=== PATIENT | male | born 1980 | race African-American/Black ===

== ENCOUNTER 2016-06-28 23:11 | Inpatient (IN) ==
[~2016-06-28 23:11] MED LIST: NARCAN ONE
[2016-06-28] MEDS: DIPRIVAN 1% 1,000 MG/100 ML BOTTLE IV SCH (23:21)
[2016-06-28] MEDS ORDERED: VERSED IV ONE (23:24)
[2016-06-28] MEDS ORDERED: NORCURON IV ONE (23:25)
[2016-06-28] MEDS ORDERED: DIPRIVAN 1% IV ONE (23:27)
[2016-06-28] MEDS ORDERED: NARCAN IV ONE ×2 (23:37→23:38)
[2016-06-28 23:38] LABS: MANUAL DIFF NEEDED? NO
[2016-06-28 23:43] LABS: BASO% 0.4 % (0.0-0.8); EOS% 2.1 % (0.0-10.0); HEMATOCRIT 36.3 % (42.0-52.0); HEMOGLOBIN 12.6 g/dL (14.0-18.0); LYMPH# 2.04 X1000 (1.2-3.4); MCH 29.6 PG (27-31); MCHC 34.7 g/dL (33-37); MCV 85.2 FL (81-99); MONO# 0.24 X1000 (0.11-0.59); MONO% 4.9 % (1.7-9.3); MPV 10.4 FL (7.4-10.4); NEUT% 50.6 % (42.2-75.2); PLT 203 X1000 (130-400); RBC 4.26 XMIL (4.7-6.1)
[2016-06-29] LABS: ACETAMINOPHEN < 1.2 ug/mL (10-30); AGAP 14; ALBUMIN 4.1 g/dL (3.5-5.0); ALKALINE PHOSPHATASE 78 U/L (32-122); BUN 5 mg/dL (8-22); CALCIUM 7.9 mg/dL (8.8-10.2); CHLORIDE 110 mmol/L (98-107); COSMO 292; GOT 20 U/L (10-34); GPT 18 U/L (10-44); POTASSIUM 3.3 mmol/L (3.5-5.1); SODIUM 148 mmol/L (136-145); TCO2 24 mmol/L (25-35); TOTAL BILIRUBIN 0.27 mg/dL (0.20-1.00); TOTAL PROTEIN 7.1 g/dL (6.3-8.3)
[2016-06-29 00:22] LABS: ALLEN TEST YES; BE 2.9 mmoll (-3.0-3.0); BLOOD TYPE ARTERIAL; DRAW SITE R RADIAL; METHB 1.6 % (0.0-1.5); O2(CT) 19.3 mL/dL (15.0-23.0); PCO2(98.6) 34 mmHg (35-45); PO2(98.6) 393 mmHg (60-100); SAMPLE BLOOD; SAO2 100.1 % (95.0-100.0); SRATE 12 BPM; THB 13.4 g/dL (11.5-17.4); TVOL 600 mL; pH(98.6) 7.49 (7.35-7.45)
[2016-06-29 00:23] LABS: MODALITY VENTILATOR
[2016-06-29 00:23] LABS: UR AMPHETAMINES QUAL NONE DETECTED (NONE DETECT); UR BARBITUATES QUAL NONE DETECTED (NONE DETECT); UR BENZODIAZEPIN QUAL NONE DETECTED (NONE DETECT); UR CANNABINOIDS QUAL NONE DETECTED (NONE DETECT); UR COCAINE QUAL NONE DETECTED (NONE DETECT); UR METHADONE QUAL NONE DETECTED (NONE DETECT); UR OPIATES QUAL NONE DETECTED (NONE DETECT); UR OXYCODONE QUAL NONE DETECTED (NONE DETECT); UR PCP QUAL NONE DETECTED (NONE DETECT)
[2016-06-29] MEDS: DIPRIVAN 1% 1,000 MG/100 ML BOTTLE IV SCH ×10 (01:50→23:33)
[2016-06-29] MEDS ORDERED: ZOFRAN IV PRN (02:18)
[2016-06-29] MEDS ORDERED: SODIUM CHLORIDE 0.9% INJ SCH (02:18)
[2016-06-29] MEDS ORDERED: D5 1/2 NS 1,000 ML IV ONE (02:18)
[2016-06-29 02:33] LABS: URINE CULTURE NEEDED? NO; URINE MICRO REVIEW NEEDED? NO; URINE SOURCE CATH
[2016-06-29 02:53] LABS: BILIRUBIN URINE NEGATIVE (NEGATIVE); BLOOD URINE NEGATIVE (NEGATIVE); COLOR STRAW; GLUCOSE URINE NEGATIVE (NEGATIVE); LEUKOCYTES URINE NEGATIVE (NEGATIVE); NITRITE URINE NEGATIVE (NEGATIVE); PH URINE 6.5; PROTEIN URINE NEGATIVE (NEGATIVE); SP GRAVITY URINE 1.002; TURBIDITY URINE CLEAR (CLEAR); UR EPITHELIAL CELLS <10 /HPF (<10); URINE BACTERIA NEGATIVE /HPF; URINE RBC <10 /HPF (<10); URINE WBC <10 /HPF (<10); UROBILINOGEN URINE NORMAL (NORMAL)
[2016-06-29] MEDS: PROTONIX IV SCH (02:54)
[2016-06-29] MEDS: POTASSIUM CHLORIDE 20 MEQ/SWI 20 MEQ/100 ML IVPB IV SCH ×2 (02:54→05:43)
[2016-06-29] MEDS: LOVENOX SUBQ SCH (02:54)
[2016-06-29] MEDS: POTASSIUM CHLORIDE 20 MEQ, MAGNESIUM SULFATE 2 GM, THIAMINE 100 MG, FOLIC ACID 1 MG, M.... IV SCH ×6 (03:18)
[2016-06-29 04:26] LABS: ALLEN TEST YES; BE -1.3 mmoll (-3.0-3.0); BLOOD TYPE ARTERIAL; DRAW SITE R RADIAL; METHB 1.2 % (0.0-1.5); O2(CT) 18.9 mL/dL (15.0-23.0); PCO2(98.6) 40 mmHg (35-45); PO2(98.6) 200 mmHg (60-100); SAMPLE BLOOD; SAO2 99.8 % (95.0-100.0); SRATE 12 BPM; THB 13.5 g/dL (11.5-17.4); TVOL 500 mL; pH(98.6) 7.38 (7.35-7.45)
[2016-06-29 04:33] LABS: MODALITY VENTILATOR
--- NOTE | 2016-06-29 05:06 | HISTORY AND PHYSICAL ---
CHIEF COMPLAINT: Unresponsiveness. HISTORY OF PRESENT ILLNESS: Briefly, this is a 36-year-old male. Patient was unresponsive. He was found out in the field, I think, with his lower end exposed. I think his pants were down, passed out. His GCS was below 6. So, he was intubated for airway protection in the ER. Workup in the ER was really unremarkable except for some respiratory alkalosis, interestingly enough. He was not particularly hypoxic but his alcohol level was over 300. The rest of his electrolytes were pretty unremarkable. He has had intoxication issues before at this hospital. He was here in 2015 for intoxication episode at that time. The is patient admitted for respiratory failure, drug intoxication presumably again, or just pure alcohol intoxication. The patient is not appropriate, although he underwent rapid sequence intubation including paralytic and he is on propofol now, but he does attempt to move and get up and around. PAST MEDICAL HISTORY: Per the chart, really nothing contributory except for alcohol abuse. He has never been admitted. PAST SURGERIES: Unknown. FAMILY HISTORY: Unobtainable. SOCIAL HISTORY: Really unremarkable except it does look like he has daily or regular alcohol use. ALLERGIES: No known drug allergies. MEDICATIONS: None listed. REVIEW OF SYSTEMS: Essentially unobtainable. PHYSICAL EXAMINATION: VITAL SIGNS: Blood pressure 124/84, heart rate of 88, respiratory of 12, 97.8 temp, 100%, I think he may be on 60% now. GENERAL: A well-developed male, in no acute distress. HEAD: Normocephalic, atraumatic. Eye exam: Pinpoint pupils, minimally reactive. ENT: He was intubated. NECK: Supple. CARDIOVASCULAR: Exam was soft S1-S2. PULMONARY: Clear to auscultation anteriorly. No rales. No rhonchi. No wheezes. GI: Soft, nontender, nondistended. Bowel sounds are positive. EXTREMITIES: No clubbing or cyanosis. LYMPHATICS: No peripheral edema. NEUROLOGICAL: He moves all extremities spontaneously but he is not responsive to questions or anything appropriate but he is sedated on propofol. LABORATORY DATA: He has no white count. Hemoglobin 12 and hematocrit 36. His chemistries are unremarkable except for sodium up a little bit at 148, potassium 3.3. UDS was negative, although we did not get a urinalysis here. ASSESSMENT: A 36-year-old male presenting with an acute encephalopathy, presumably toxic from drugs or alcohol or a mixture of both, now with respiratory failure, insufficiency due to essentially obtundation. 1. Encephalopathy. We will continue hydration. I am going to give him fluids and a banana bag, and we will monitor closely. He does have some mild hypokalemia. A head CT was unremarkable and he is starting to come around. 2. Acute respiratory failure. We will continue to manage on the ventilator. Obviously oxygenation is not an issue. 3. Hypokalemia. We will supplement and follow. 4. Alcohol abuse, polysubstance abuse. We will continue to monitor very closely, especially for withdrawal issues, although this could have been a binge episode. DISPOSITION: Pending his clinical course. cc: Teddy Cheung MD
[2016-06-29 05:54] LABS: HEMOGLOBIN 13.7 g/dL (14.0-18.0); MCH 29.3 PG (27-31); MCHC 34.3 g/dL (33-37); MCV 85.7 FL (81-99); MPV 10.5 FL (7.4-10.4); RBC 4.67 XMIL (4.7-6.1)
[2016-06-29 06:24] LABS: AGAP 12; BUN 4 mg/dL (8-22); CALCIUM 8.1 mg/dL (8.8-10.2); CHLORIDE 113 mmol/L (98-107); COSMO 296; MAGNESIUM 2.5 mg/dL (1.5-2.7); POTASSIUM 3.9 mmol/L (3.5-5.1); SODIUM 150 mmol/L (136-145); TCO2 25 mmol/L (25-35)
[2016-06-29 06:44] LABS: CK INDEX 0.6 (0.0-2.5); CK-MB 2.61 ng/mL (0.0-5.0)
--- NOTE | 2016-06-29 07:10 | Diag Imaging Result Doc PS360 ---
EXAM: CHEST-PORTABLE HISTORY: dyspnea TECHNIQUE: AP portable at 0500 COMMENT: There is an endotracheal tube with its tip just above the kae. This has been withdrawn a centimeter or two since the previous study of 06/28/2016. There is improvement in the ill-defined opacity which was previously obscuring the left hemidiaphragm. Otherwise the appearance of the chest has not changed significantly. IMPRESSION: Improved left lower lobe atelectasis. Electronically signed by Richard Ku 06/29/2016 7:07 AM
--- NOTE | 2016-06-29 08:08 | Diag Imaging Result Doc PS360 ---
EXAM: CHEST/ABD TUBE PLACEMENT HISTORY: tube placement TECHNIQUE: AP portable at 2330 COMMENT: The endotracheal tube tip is in the orifice of the right mainstem bronchus. There is ill-defined opacity in the left base which was not present on 05/22/2014. The heart size and pulmonary vascularity are within normal limits. IMPRESSION: Endotracheal tube tip is just within the right mainstem bronchus. Left lower lobe atelectasis versus pneumonia. Electronically signed by Richard Ku 06/29/2016 8:06 AM
--- NOTE | 2016-06-29 08:13 | Diag Imaging Result Doc PS360 ---
EXAM: HEAD W/O CONTRAST HISTORY: altered mentation TECHNIQUE: CT of the head without contrast with a dose reduction (clarity.) COMMENT: There are calcifications in the globus pallidus bilaterally. There is no evidence of mass effect bleed or abnormal extra-axial fluid collection. Compared to 05/22/2014 there has been no significant change in the appearance of the brain. There is some mucosal thickening and there is mucus retention cyst formation in the maxillary sinuses particularly on the right. No air-fluid levels are present in the visualized paranasal sinuses. The calvarium is intact. IMPRESSION: Chronic sinusitis. No evidence of acute intracranial disease. Electronically signed by Richard Ku 06/29/2016 8:11 AM
[2016-06-29] MEDS: D5W 1,000 ML IV SCH ×2 (08:34→18:22)
[2016-06-29 09:54] LABS: CK INDEX 0.6 (0.0-2.5); CK-MB 2.58 ng/mL (0.0-5.0)
[2016-06-29 14:53] LABS: CK INDEX 0.5 (0.0-2.5); CK-MB 2.88 ng/mL (0.0-5.0)
[2016-06-29] MEDS: ATIVAN IV PRN (20:08)
[2016-06-29] MEDS ORDERED: MORPHINE IV ONE (21:35)
[2016-06-30] MEDS: DIPRIVAN 1% 1,000 MG/100 ML BOTTLE IV SCH ×4 (01:32→07:57)
[2016-06-30] MEDS: PHENOBARBITAL IV ONE ×2 (02:14→02:33)
[2016-06-30] MEDS: POTASSIUM CHLORIDE 20 MEQ, MAGNESIUM SULFATE 2 GM, THIAMINE 100 MG, FOLIC ACID 1 MG, M.... IV SCH ×6 (02:14)
[2016-06-30] MEDS: LOVENOX SUBQ SCH (02:14)
[2016-06-30] MEDS: ATIVAN IV PRN ×2 (02:21→07:21)
[2016-06-30] MEDS: PROTONIX IV SCH (02:32)
[2016-06-30 04:39] LABS: ALLEN TEST YES; BLOOD TYPE ARTERIAL; DRAW SITE R RADIAL; METHB 1.6 % (0.0-1.5); O2(CT) 17.7 mL/dL (15.0-23.0); PCO2(98.6) 40 mmHg (35-45); PO2(98.6) 124 mmHg (60-100); SAMPLE BLOOD; SAO2 99.7 % (95.0-100.0); SRATE 12 BPM; THB 12.9 g/dL (11.5-17.4); TVOL 500 mL; pH(98.6) 7.43 (7.35-7.45)
[2016-06-30 04:40] LABS: MODALITY VENTILATOR
[2016-06-30 05:22] LABS: MANUAL DIFF NEEDED? NO
[2016-06-30 05:31] LABS: BASO% 0.1 % (0.0-0.8); EOS# 0.14 X1000 (0.0-0.7); EOS% 1.6 % (0.0-10.0); HEMATOCRIT 38.7 % (42.0-52.0); HEMOGLOBIN 13.2 g/dL (14.0-18.0); LYMPH% 17.6 % (20.5-51.1); MCH 29.6 PG (27-31); MCHC 34.1 g/dL (33-37); MCV 86.8 FL (81-99); MONO# 0.81 X1000 (0.11-0.59); MONO% 9.5 % (1.7-9.3); NEUT% 71.2 % (42.2-75.2); PLT 178 X1000 (130-400); RBC 4.46 XMIL (4.7-6.1)
[2016-06-30] MEDS: D5W 1,000 ML IV SCH (05:56)
[2016-06-30 06:05] LABS: AGAP 13; BUN 4 mg/dL (8-22); CALCIUM 8.3 mg/dL (8.8-10.2); CHLORIDE 107 mmol/L (98-107); COSMO 282; POTASSIUM 3.6 mmol/L (3.5-5.1); SODIUM 143 mmol/L (136-145); TCO2 23 mmol/L (25-35)
--- NOTE | 2016-06-30 07:36 | Diag Imaging Result Doc PS360 ---
EXAM: CHEST-PORTABLE HISTORY: dyspnea TECHNIQUE: AP portable 0500 COMMENT: The endotracheal tube tip is just above the kae. The lungs are clear and the heart and primary vascularity are within normal limits. IMPRESSION: No acute disease. Electronically signed by Richard Ku 06/30/2016 7:34 AM
[2016-06-30] MEDS ORDERED: HALDOL IV PRN (09:01)
[2016-06-30] MEDS ORDERED: ZOSYN 3.375 GM/NS 3.375 GM/50 ML IVPB IV SCH (09:30)
[2016-06-30 10:06] LABS: ALLEN TEST YES; BLOOD TYPE ARTERIAL; DRAW SITE R RADIAL; METHB 1.6 % (0.0-1.5); MODALITY VENTILATOR; O2(CT) 18.6 mL/dL (15.0-23.0); PCO2(98.6) 42 mmHg (35-45); PO2(98.6) 134 mmHg (60-100); SAMPLE BLOOD; SAO2 99.5 % (95.0-100.0); THB 13.5 g/dL (11.5-17.4)
[2016-06-30 11:19] VITALS: BP 149/84
--- NOTE | 2016-06-30 16:23 | PROGRESS NOTE ---
DATE: 06/30/2016 SUBJECTIVE: The patient is currently sedated on the ventilator. No acute events noted overnight. OBJECTIVE: Vital Signs: Temperature 99.8 degrees, blood pressure 149/84, heart rate 79, respirations 31, O2 saturation is 97% on the mechanical ventilator. General: This is a young male, lying in bed, in no acute distress. Head: Normocephalic, atraumatic. Heart: S1, S2. Normal. Regular rate and rhythm. Lungs: Clear to auscultation bilaterally. Abdomen: Positive bowel sounds. Soft, nontender, nondistended. Extremities: No edema. No cyanosis. No calf tenderness. Neurologic: The patient is currently sedated on the ventilator. LABS: White blood cell count 8.5, hemoglobin 13, hematocrit 38, platelets 178,000. Sodium 143, potassium 3.6, chloride 107, CO2 23, BUN 4, creatinine 1, glucose 105, calcium 8.3. ASSESSMENT AND PLAN: 1. Acute hypoxemic respiratory failure. Ventilatory management as per the fermenter. Hopefully the patient will be able to be extubated today. 2. Acute alcohol intoxication. Aware. 3. Chronic sinusitis. Continue on Zosyn. 4. Gastrointestinal prophylaxis. Continue on IV Protonix. 5. Deep vein thrombosis prophylaxis. Continue on Lovenox. 6. The plan of care was discussed with the patient's and mother at the bedside. cc: Sepideh Goodwin MD
--- NOTE | 2016-07-01 06:31 | EKG Report ---
Test Performed on : 06/28/2016 11:13:37 PM Test Reason : unresponsive Blood Pressure : / mmHG Vent. Rate : 107 BPM Atrial Rate : 107 BPM P-R Int : 166 ms QRS Dur : 080 ms QT Int : 332 ms P-R-T Axes : 044 023 -09 degrees QTc Int : 443 ms Sinus tachycardia. Nonspecific T wave abnormality Abnormal ECG When compared with ECG of 22-MAY-2014 09:52, Nonspecific T wave abnormality now evident in Anterolateral leads Unconfirmed Result
--- NOTE | 2016-07-06 16:15 | DISCHARGE SUMMARY ---
ADMISSION DATE: 06/29/2016 DISCHARGE DATE: 06/30/2016 FINAL DISCHARGE DIAGNOSES: 1. Acute hypoxemic respiratory failure. 2. Acute alcohol intoxication. 3. Chronic sinusitis. CONSULTATIONS REQUESTED DURING THIS HOSPITAL STAY: Pulmonary consultation with Dr. Rodriguez. HOSPITAL COURSE: Mr. Magallon is a 36-year-old male, who was brought to the ER after the patient was noted to be unresponsive. The patient was intubated for airway protection while in the ER. The urine drug toxicology screen was done which noted that the patient had an elevated alcohol level, but no other drugs were detected. The patient was admitted to the intensive care unit and pulmonary was consulted for vent management. The following morning, the patient was extubated. The CT that was done in the ER did reveal that the patient had chronic sinusitis, and IV Zosyn was initiated. Once the patient was extubated and awake, he decided that he did not want to remain in the hospital and opted to leave the hospital against medical advice. The risk of further deterioration and was discussed with the patient, and the patient stated that he was willing to take the risk and he was picked up by his family and left the hospital. cc: Sepideh Goodwin MD
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
== END 2016-06-30 15:02 | disposition left against medical advice (07) ==
LOC: ED 23:11 → ICU 06-29 01:51 → SUATTDRO 06-29 01:51
PROVIDERS: ATTEND Internal Medicine